=== PATIENT | female | born 1955 | race Caucasian/White ===

== ENCOUNTER 2021-01-23 10:50 | Outpatient (CLI) | payer OTHER | END 2021-01-23 10:51 | disposition home or self-care (01) | LOC: BICRAD 10:50 | PROVIDERS: ATTEND Internal Medicine Critical Care Medicine | DX: R06.00 Dyspnea, unspecified (principal); R91.8 Other nonspecific abnormal finding of lung field | CPT/HCPCS: 71046 ==

== ENCOUNTER 2021-02-21 10:33 | Emergency (ER) | payer OTHER ==
[~2021-02-21 10:33] MED LIST: Iopamidol-370 76% 500 ML 1 ML ONE
[2021-02-21 11:27] LABS: #Basophils 0.1 thou/uL (0.0-0.2); #Eosinphils 0.8 thou/uL (0.0-0.7); #Lymphocytes 2.3 thou/uL (1.20-3.40); #Monocytes 0.7 thou/uL (0.11-0.59); #Neutrophils 4.2 thou/uL (1.40-6.50); %Basophils 1.5 % (0.0-1.0); %Eosinophils 9.9 % (0.0-10.0); %Lymphocytes 28.2 % (21.0-51.0); %Monocytes 8.9 % (0.0-10.0); %Neutrophils 51.6 % (42.0-75.0); Hemoglobin 17.3 g/dL (12.0-16.0); Mean Corpuscular HGB CONC 32.3 g/dL (32.0-36.0); Mean Corpuscular Hemoglobin 30.6 pg (27.0-31.0); Mean Corpuscular Volume 94.9 fL (78.0-98.0); Mean Platelet Volume 8.5 fL (7.4-10.4); Platelet Count 305 thou/uL (130-400); RBC Distribution Width 12.9 % (11.5-14.5); Red Blood Cell (RBC) Count 5.63 mill/uL (4.20-5.40); White Blood Cell (WBC) Count 8.2 thou/uL (4.8-10.8)
[2021-02-21 11:41] LABS: Actual Bicarbonate (HCO3a) 26.8 mEq/L (22-28); Analyzer IN Cardio ER; Base Excess (BEa) 2.6 mEq/L (-2.0 to +3.0); Carboxyhemoglobin (COHb) 0.3 gm% (0.0-3.0); O2 Tension (PaO2), arterial 63.3 mmHg (> 80.0); Potassium - ABG Lab 4.08 mmol/L (3.70-5.30); pH, Arterial 7.44 (7.35-7.45)
[2021-02-21 11:46] LABS: Puncture Site LRA
[2021-02-21] MEDS ORDERED: Magnesium 2 GM/50 ML BAG (IN WATER) ONE (11:46)
[2021-02-21] MEDS ORDERED: Dexamethasone 10 MG/ML VIAL ONE (11:46)
[2021-02-21] MEDS ORDERED: Aspirin Chewable 81 MG TAB ONE (11:46)
[2021-02-21 11:57] LABS: ALT (SGPT) 35 U/L (8-55); AST (SGOT) 33 U/L (5-34); Albumin 4.8 g/dL (3.4-4.8); Alkaline Phosphatase 70 U/L (40-110); Anion Gap 17 mmol/L (10-20); BUN (Urea Nitrogen) 19 mg/dL (9.8-20.1); Bilirubin, Total 0.5 mg/dL (0.2-1.2); CK (CPK) 73 U/L (29-168); Calc. Creatinine Clearance 0 mL/min (70-130); Calcium 10.4 mg/dL (7.8-10.44); Carbon Dioxide 27 mmol/L (23-31); Chloride 102 mmol/L (98-107); Globulin 3.1 g/dL (2.4-3.5); Glucose 94 mg/dL (80-115); Lipase 17 U/L (8-78); Potassium 5.5 mmol/L (3.5-5.1); Protein, Total 7.9 g/dL (5.8-8.1); Sodium 140 mmol/L (136-145)
== END 2021-02-21 14:35 | disposition home or self-care (01) ==
LOC: ERS 10:33
DX: J44.9 Chronic obstructive pulmonary disease, unspecified (principal); F17.210 Nicotine dependence, cigarettes, uncomplicated
CPT/HCPCS: 36415; 36600; 71045; 71275; 80053; 82550; 82805; 83605; 83690; 83880; 84484; 85025; 85379; 87040; 93005; 94640; 96365; 96375; J1100; J3475

== ENCOUNTER 2021-08-29 08:11 | Outpatient (CLI) | payer OTHER | END 2021-08-29 08:12 | disposition home or self-care (01) | LOC: RAD 08:11 | PROVIDERS: ATTEND Internal Medicine Critical Care Medicine | DX: R06.00 Dyspnea, unspecified (principal) | CPT/HCPCS: 71046 ==

== ENCOUNTER 2021-09-02 19:00 | Outpatient (CLI) | payer OTHER | END 2021-09-02 19:01 | disposition home or self-care (01) | LOC: SLEEPLAB 19:00 | PROVIDERS: ATTEND Internal Medicine Critical Care Medicine | DX: G47.33 Obstructive sleep apnea (adult) (pediatric) (principal); R06.83 Snoring; J44.9 Chronic obstructive pulmonary disease, unspecified; R09.02 Hypoxemia | CPT/HCPCS: 95810 ==

== ENCOUNTER 2021-09-17 12:05 | Inpatient (IN) | payer OTHER ==
[2021-09-17] MEDS ORDERED: Albuterol Sulfate 2.5 mg/3 ml Neb ONE (12:56)
[2021-09-17] MEDS ORDERED: Albuterol Sulfate 2.5 mg/0.5 ml Neb ONE (12:56)
[2021-09-17 13:09] LABS: #Lymphocytes 0.8 thou/uL (1.20-3.40); #Monocytes 0.1 thou/uL (0.11-0.59); #Neutrophils 4.4 thou/uL (1.40-6.50); %Basophils 0.1 % (0.0-1.0); %Eosinophils 0.4 % (0.0-10.0); %Lymphocytes 15.4 % (21.0-51.0); %Monocytes 1.7 % (0.0-10.0); %Neutrophils 82.4 % (42.0-75.0); Hemoglobin 15.3 g/dL (12.0-16.0); Mean Corpuscular HGB CONC 31.3 g/dL (32.0-36.0); Mean Corpuscular Volume 95.9 fL (78.0-98.0); Mean Platelet Volume 7.6 fL (7.4-10.4); Platelet Count 328 thou/uL (130-400); RBC Distribution Width 12.7 % (11.5-14.5); Red Blood Cell (RBC) Count 5.11 mill/uL (4.20-5.40); White Blood Cell (WBC) Count 5.3 thou/uL (4.8-10.8)
[2021-09-17 13:33] LABS: ALT (SGPT) 18 U/L (8-55); AST (SGOT) 18 U/L (5-34); Albumin 4.6 g/dL (3.4-4.8); Alkaline Phosphatase 54 U/L (40-110); Anion Gap 11 mmol/L (10-20); BUN (Urea Nitrogen) 17 mg/dL (9.8-20.1); Bilirubin, Total 0.7 mg/dL (0.2-1.2); CK (CPK) 75 U/L (29-168); Calc. Creatinine Clearance 0 mL/min (70-130); Calcium 9.9 mg/dL (7.8-10.44); Carbon Dioxide 29 mmol/L (23-31); Chloride 102 mmol/L (98-107); Globulin 2.5 g/dL (2.4-3.5); Glucose 155 mg/dL (80-115); Potassium 3.9 mmol/L (3.5-5.1); Protein, Total 7.1 g/dL (5.8-8.1); Sodium 138 mmol/L (136-145)
[2021-09-17] MEDS ORDERED: Iopamidol-370 76% 500 ML 1 ML ONE (15:20)
[2021-09-17 16:53] VITALS: BMI 19.7
[2021-09-17] MEDS ORDERED: Calcium Carbonate 500 MG ChewTAB PO PRN (16:58)
[2021-09-17] MEDS ORDERED: Senokot S 8.6-50 MG TAB PO PRN (16:58)
[2021-09-17] MEDS ORDERED: Acetaminophen 325 MG TAB PO PRN (16:58)
[2021-09-17] MEDS ORDERED: Benzonatate 100 MG CAP PO PRN (17:17)
[2021-09-17] MEDS ORDERED: Cepastat Lozenges 1 LOZ PO PRN (17:17)
[2021-09-17 17:44] LABS: Magnesium 1.8 mg/dL (1.6-2.6)
[2021-09-17 18:02] LABS: Troponin I Less than 0.010 ng/mL (< 0.028)
[2021-09-17] MEDS: methylPREDNISolone Sod Succ 40 MG VIAL IVP SCH (18:10)
[2021-09-17] MEDS: Azithromycin 500 MG in Sodium Chloride 0.9% 250 ML 250 ML IVPB SCH (18:10)
[2021-09-17] MEDS: Famotidine 20 MG TAB PO SCH (20:30)
[2021-09-17] MEDS: guaiFENesin ER 600 MG TAB PO SCH (20:30)
[2021-09-17] MEDS ORDERED: Magnesium 2 GM/50 ML(in water) 2 GM in Premix Bag 1 BAG IVPB SCH (21:00)
[2021-09-17 21:18] LABS: Troponin I Less than 0.010 ng/mL (< 0.028)
[2021-09-17] MEDS: Albuterol 200 PUFF (6.7GM INHALER) INH SCH (23:50)
[2021-09-18] MEDS: Albuterol 200 PUFF (6.7GM INHALER) INH SCH ×8 (00:54→22:00)
[2021-09-18] MEDS: methylPREDNISolone Sod Succ 40 MG VIAL IVP SCH ×2 (04:35→16:58)
[2021-09-18 06:32] LABS: #Basophils 0.1 thou/uL (0.0-0.2); #Lymphocytes 1.3 thou/uL (1.20-3.40); #Monocytes 0.5 thou/uL (0.11-0.59); #Neutrophils 7.8 thou/uL (1.40-6.50); %Basophils 0.7 % (0.0-1.0); %Eosinophils 0.2 % (0.0-10.0); %Lymphocytes 13.7 % (21.0-51.0); %Monocytes 5.3 % (0.0-10.0); %Neutrophils 80.1 % (42.0-75.0); Hemoglobin 13.5 g/dL (12.0-16.0); Mean Corpuscular HGB CONC 32.1 g/dL (32.0-36.0); Mean Corpuscular Hemoglobin 30.8 pg (27.0-31.0); Mean Corpuscular Volume 96.1 fL (78.0-98.0); Mean Platelet Volume 7.8 fL (7.4-10.4); Platelet Count 339 thou/uL (130-400); RBC Distribution Width 12.5 % (11.5-14.5); Red Blood Cell (RBC) Count 4.38 mill/uL (4.20-5.40); White Blood Cell (WBC) Count 9.8 thou/uL (4.8-10.8)
[2021-09-18 07:01] LABS: Anion Gap 11 mmol/L (10-20); BUN (Urea Nitrogen) 17 mg/dL (9.8-20.1); Calc. Creatinine Clearance 47 mL/min (70-130); Calcium 9.1 mg/dL (7.8-10.44); Carbon Dioxide 26 mmol/L (23-31); Chloride 103 mmol/L (98-107); Glucose 117 mg/dL (80-115); Potassium 4.4 mmol/L (3.5-5.1); Sodium 136 mmol/L (136-145)
[2021-09-18] MEDS: guaiFENesin ER 600 MG TAB PO SCH ×3 (07:04→21:05)
[2021-09-18] MEDS: Famotidine 20 MG TAB PO SCH (07:04)
[2021-09-18] MEDS ORDERED: Enoxaparin Sodium 30 MG/0.3 ML SYRINGE SC SCH (09:00)
[2021-09-18 15:56] LABS: Actual Bicarbonate (HCO3a) 28.8 mEq/L (22-28); Base Excess (BEa) 5.2 mEq/L (-2.0 to +3.0); CO2 Tension 38.9 mmHg (35.0-45.0); Calcium, Ionized (arterial) 1.21 mmol/L (1.12-1.30); Carboxyhemoglobin (COHb) 0.6 gm% (0.0-3.0); Hemoglobin (Hb) 15.5 g/dL (12.0-16.0); O2 Tension (PaO2), arterial 61.2 mmHg (> 80.0); Potassium - ABG Lab 4.21 mmol/L (3.70-5.30); pH, Arterial 7.49 (7.35-7.45)
[2021-09-18 15:59] LABS: ALV-art Gradient 39.905 mmHg (0-20); Puncture Site RRA
[2021-09-18] MEDS: Azithromycin 500 MG in Sodium Chloride 0.9% 250 ML 250 ML IVPB SCH (17:20)
[2021-09-18] MEDS ORDERED: Montelukast Sodium 10 mg Tablet PO SCH (21:00)
[2021-09-19] MEDS: Albuterol 200 PUFF (6.7GM INHALER) INH SCH ×3 (01:00→06:16)
[2021-09-19] MEDS: methylPREDNISolone Sod Succ 40 MG VIAL IVP SCH (05:15)
[2021-09-19 08:26] VITALS: TEMP 98.4
[2021-09-19] MEDS: guaiFENesin ER 600 MG TAB PO SCH (08:43)
[2021-09-19] MEDS: Famotidine 20 MG TAB PO SCH ×2 (08:43→08:46)
[2021-09-19 11:59] VITALS: BP 120/84
== END 2021-09-19 12:33 | disposition home or self-care (01) | DRG 189 ==
LOC: ERS 12:05 → T4-A 15:36
PROVIDERS: ADMIT Internal Medicine; ATTEND Internal Medicine
DX: J96.21 Acute and chronic respiratory failure with hypoxia (principal); J43.9 Emphysema, unspecified; N18.30 Chronic kidney disease, stage 3 unspecified; E83.42 Hypomagnesemia; R73.9 Hyperglycemia, unspecified; T38.0X5A Adverse effect of glucocorticoids and synthetic analogues, initial encounter; Z87.891 Personal history of nicotine dependence; Z99.81 Dependence on supplemental oxygen; Z88.6 Allergy status to analgesic agent; Z88.5 Allergy status to narcotic agent; Z88.8 Allergy status to other drugs, medicaments and biological substances; Z79.899 Other long term (current) drug therapy; Z79.52 Long term (current) use of systemic steroids; Z90.89 Acquired absence of other organs; Z90.710 Acquired absence of both cervix and uterus
CPT/HCPCS: 36415; 36600; 71275; 80048; 80053; 82550; 82805; 83735; 83880; 84484; 85025; 93005; 94640; J0456; J1650; J2920; J7050; J7611; Q9967

== ENCOUNTER 2021-10-29 19:00 | Outpatient (CLI) | payer OTHER | END 2021-10-29 19:01 | disposition home or self-care (01) | LOC: SLEEPLAB 19:00 | PROVIDERS: ATTEND Internal Medicine Critical Care Medicine | DX: G47.33 Obstructive sleep apnea (adult) (pediatric) (principal); R06.83 Snoring; G47.00 Insomnia, unspecified; J44.9 Chronic obstructive pulmonary disease, unspecified; G47.10 Hypersomnia, unspecified; R09.02 Hypoxemia; E66.9 Obesity, unspecified; Z68.1 Body mass index [BMI] 19.9 or less, adult | CPT/HCPCS: 95811 ==

== ENCOUNTER 2022-01-01 11:51 | Outpatient (CLI) | payer OTHER | END 2022-01-01 11:52 | disposition home or self-care (01) | LOC: RAD 11:51 | PROVIDERS: ATTEND Internal Medicine Critical Care Medicine | DX: J44.1 Chronic obstructive pulmonary disease with (acute) exacerbation (principal) | CPT/HCPCS: 71046 ==

== ENCOUNTER 2022-06-26 10:10 | Outpatient (CLI) | payer OTHER, MEDICAID | END 2022-06-26 10:11 | disposition home or self-care (01) | LOC: CT 10:10 | PROVIDERS: ATTEND Internal Medicine Critical Care Medicine | DX: J44.1 Chronic obstructive pulmonary disease with (acute) exacerbation (principal); J98.4 Other disorders of lung | CPT/HCPCS: 71250 ==

== ENCOUNTER 2022-06-30 10:59 | Inpatient (IN) | payer OTHER, MEDICAID ==
[2022-06-30] MEDS ORDERED: Ipratropium/Albuterol 3 ML NEB ONE ×2 (11:50→23:37)
[2022-06-30] MEDS ORDERED: Magnesium 2 GM/50 ML BAG (IN WATER) ONE (11:50)
[2022-06-30 11:58] LABS: #Lymphocytes 0.7 thou/uL (1.20-3.40); #Monocytes 0.1 thou/uL (0.11-0.59); #Neutrophils 5.6 thou/uL (1.40-6.50); %Basophils 0.6 % (0.0-1.0); %Eosinophils 0.4 % (0.0-10.0); %Lymphocytes 10.7 % (21.0-51.0); %Monocytes 1.5 % (0.0-10.0); Hemoglobin 15.3 g/dL (12.0-16.0); Mean Corpuscular HGB CONC 31.2 g/dL (32.0-36.0); Mean Corpuscular Hemoglobin 29.6 pg (27.0-31.0); Mean Corpuscular Volume 94.7 fl (78.0-98.0); Mean Platelet Volume 7.8 fL (7.4-10.4); Platelet Count 460 10x3/uL (130-400); RBC Distribution Width 12.2 % (11.5-14.5); Red Blood Cell (RBC) Count 5.17 mill/uL (4.20-5.40); White Blood Cell (WBC) Count 6.4 10x3/uL (4.8-10.8)
[2022-06-30 12:22] LABS: ALT (SGPT) 17 U/L (8-55); AST (SGOT) 17 U/L (5-34); Albumin 4.4 g/dL (3.4-4.8); Alkaline Phosphatase 76 U/L (40-110); Anion Gap 17 mmol/L (10-20); BUN (Urea Nitrogen) 19 mg/dL (9.8-20.1); Bilirubin, Total 0.3 mg/dL (0.2-1.2); Calc. Creatinine Clearance 0 mL/min (70-130); Calcium 9.8 mg/dL (7.8-10.44); Carbon Dioxide 24 mmol/L (23-31); Chloride 101 mmol/L (98-107); Estimated GFR 59; Globulin 2.8 g/dL (2.4-3.5); Glucose 176 mg/dL (80-115); Lipase Less than 4 U/L (8-78); Potassium 4.5 mmol/L (3.5-5.1); Protein, Total 7.2 g/dL (5.8-8.1); Sodium 137 mmol/L (136-145)
[2022-06-30] MEDS ORDERED: Ondansetron PF 4 MG/2 ML Vial IVP PRN (15:27)
[2022-06-30] MEDS ORDERED: Acetaminophen 325 MG TAB PO PRN (15:27)
[2022-06-30] MEDS ORDERED: Ondansetron ODT 4 MG TAB PO PRN (15:27)
[2022-06-30] MEDS ORDERED: Albuterol 200 PUFF (6.7GM INHALER) INH PRN (15:29)
[2022-06-30] MEDS ORDERED: methylPREDNISolone Sod Succ 40 MG VIAL ONE (19:08)
[2022-06-30] MEDS: methylPREDNISolone Sod Succ 40 MG VIAL IVP SCH (19:13)
[2022-06-30] MEDS ORDERED: Apixaban 5 MG TAB PO SCH (21:00)
[2022-06-30] MEDS ORDERED: Famotidine 20 MG TAB ONE (21:50)
[2022-06-30] MEDS ORDERED: Budesonide 0.5 MG/2 ML NEB ONE (23:38)
[2022-07-01] MEDS: Apixaban 2.5 MG TAB PO SCH ×3 (00:15→20:32)
[2022-07-01] MEDS: Famotidine 20 MG TAB PO SCH ×3 (00:15→20:32)
[2022-07-01] MEDS: Montelukast Sodium 10 mg Tablet PO SCH ×2 (00:15→20:33)
[2022-07-01] MEDS: methylPREDNISolone Sod Succ 40 MG VIAL IVP SCH ×4 (00:55→17:25)
[2022-07-01 01:06] LABS: SARS-CoV-2 NAA Rapid Test Not Detected (NotDetected)
[2022-07-01] MEDS: Budesonide 0.25 MG/2 ML NEB INH SCH ×2 (01:27→06:50)
[2022-07-01] MEDS: Ipratropium/Albuterol 3 ML NEB NEB SCH ×5 (01:27→18:50)
[2022-07-01 07:07] LABS: #Lymphocytes 1.8 thou/uL (1.20-3.40); #Monocytes 0.7 thou/uL (0.11-0.59); #Neutrophils 8.1 thou/uL (1.40-6.50); %Basophils 0.1 % (0.0-1.0); %Eosinophils 0.1 % (0.0-10.0); %Lymphocytes 16.9 % (21.0-51.0); %Monocytes 6.4 % (0.0-10.0); %Neutrophils 76.4 % (42.0-75.0); Hemoglobin 13.7 g/dL (12.0-16.0); Mean Corpuscular Hemoglobin 29.5 pg (27.0-31.0); Mean Corpuscular Volume 95.3 fl (78.0-98.0); Mean Platelet Volume 7.6 fL (7.4-10.4); Platelet Count 425 10x3/uL (130-400); RBC Distribution Width 12.2 % (11.5-14.5); Red Blood Cell (RBC) Count 4.63 mill/uL (4.20-5.40); White Blood Cell (WBC) Count 10.6 10x3/uL (4.8-10.8)
[2022-07-01 07:24] LABS: Anion Gap 14 mmol/L (10-20); BUN (Urea Nitrogen) 24 mg/dL (9.8-20.1); Calc. Creatinine Clearance 51 mL/min (70-130); Calcium 9.5 mg/dL (7.8-10.44); Carbon Dioxide 26 mmol/L (23-31); Chloride 102 mmol/L (98-107); Estimated GFR 79; Glucose 114 mg/dL (80-115); Potassium 4.3 mmol/L (3.5-5.1); Sodium 138 mmol/L (136-145)
[2022-07-01] MEDS: Sertraline 100 MG TAB PO SCH (08:09)
[2022-07-01] MEDS: Cyclobenzaprine 10 MG TAB PO PRN ×2 (12:00→20:33)
[2022-07-01] MEDS: Sodium Chloride 0.45% 1,000 ML IV SCH (17:25)
[2022-07-01] MEDS: Budesonide 0.5 MG/2 ML NEB NEB SCH (18:50)
[2022-07-02] MEDS: methylPREDNISolone Sod Succ 40 MG VIAL IVP SCH ×5 (00:48→23:40)
[2022-07-02] MEDS: Sodium Chloride 0.45% 1,000 ML IV SCH ×2 (05:49→17:22)
[2022-07-02] MEDS: Ipratropium/Albuterol 3 ML NEB NEB SCH ×4 (06:54→19:33)
[2022-07-02] MEDS: Budesonide 0.5 MG/2 ML NEB NEB SCH ×2 (06:56→19:34)
[2022-07-02 07:14] LABS: #Lymphocytes 1.5 thou/uL (1.20-3.40); #Monocytes 0.4 thou/uL (0.11-0.59); #Neutrophils 11.1 thou/uL (1.40-6.50); %Basophils 0.1 % (0.0-1.0); %Eosinophils 0.2 % (0.0-10.0); %Lymphocytes 11.4 % (21.0-51.0); %Neutrophils 85.3 % (42.0-75.0); Hemoglobin 13.7 g/dL (12.0-16.0); Mean Corpuscular HGB CONC 31.7 g/dL (32.0-36.0); Mean Corpuscular Volume 94.9 fl (78.0-98.0); Mean Platelet Volume 7.8 fL (7.4-10.4); Platelet Count 435 10x3/uL (130-400); RBC Distribution Width 12.2 % (11.5-14.5); Red Blood Cell (RBC) Count 4.56 mill/uL (4.20-5.40); White Blood Cell (WBC) Count 13.1 10x3/uL (4.8-10.8)
[2022-07-02 07:38] LABS: ALT (SGPT) 11 U/L (8-55); AST (SGOT) 10 U/L (5-34); Albumin 3.5 g/dL (3.4-4.8); Alkaline Phosphatase 73 U/L (40-110); Anion Gap 14 mmol/L (10-20); BUN (Urea Nitrogen) 21 mg/dL (9.8-20.1); Bilirubin, Total 0.2 mg/dL (0.2-1.2); Calc. Creatinine Clearance 54 mL/min (70-130); Calcium 9.1 mg/dL (7.8-10.44); Carbon Dioxide 25 mmol/L (23-31); Chloride 101 mmol/L (98-107); Estimated GFR 83; Globulin 2.2 g/dL (2.4-3.5); Glucose 133 mg/dL (80-115); Potassium 4.3 mmol/L (3.5-5.1); Protein, Total 5.7 g/dL (5.8-8.1); Sodium 136 mmol/L (136-145)
[2022-07-02] MEDS: Sertraline 100 MG TAB PO SCH (08:24)
[2022-07-02] MEDS: Famotidine 20 MG TAB PO SCH ×2 (08:24→20:37)
[2022-07-02] MEDS: Apixaban 2.5 MG TAB PO SCH ×2 (08:24→20:37)
[2022-07-02] MEDS: Cyclobenzaprine 10 MG TAB PO PRN ×2 (08:42→20:42)
[2022-07-02] MEDS: Montelukast Sodium 10 mg Tablet PO SCH (20:37)
[2022-07-02] MEDS: Sulfameth/Trimethoprim DS 800-160mg TAB PO SCH (20:37)
[2022-07-03] MEDS: methylPREDNISolone Sod Succ 40 MG VIAL IVP SCH ×4 (06:14→23:10)
[2022-07-03] MEDS: Sodium Chloride 0.45% 1,000 ML IV SCH ×2 (06:18→23:30)
[2022-07-03 07:33] LABS: #Eosinphils 0.1 thou/uL (0.0-0.7); #Lymphocytes 1.3 thou/uL (1.20-3.40); #Monocytes 0.6 thou/uL (0.11-0.59); %Basophils 0.1 % (0.0-1.0); %Eosinophils 0.5 % (0.0-10.0); %Lymphocytes 9.6 % (21.0-51.0); %Monocytes 3.9 % (0.0-10.0); %Neutrophils 85.9 % (42.0-75.0); Hemoglobin 14.5 g/dL (12.0-16.0); Mean Corpuscular Hemoglobin 30.5 pg (27.0-31.0); Mean Corpuscular Volume 95.1 fl (78.0-98.0); Mean Platelet Volume 7.8 fL (7.4-10.4); Platelet Count 435 10x3/uL (130-400); RBC Distribution Width 12.2 % (11.5-14.5); Red Blood Cell (RBC) Count 4.77 mill/uL (4.20-5.40)
[2022-07-03 07:57] LABS: ALT (SGPT) 16 U/L (8-55); AST (SGOT) 18 U/L (5-34); Albumin 3.6 g/dL (3.4-4.8); Alkaline Phosphatase 65 U/L (40-110); Anion Gap 15 mmol/L (10-20); BUN (Urea Nitrogen) 17 mg/dL (9.8-20.1); Bilirubin, Total 0.3 mg/dL (0.2-1.2); Calc. Creatinine Clearance 53 mL/min (70-130); Calcium 9.1 mg/dL (7.8-10.44); Carbon Dioxide 24 mmol/L (23-31); Chloride 102 mmol/L (98-107); Estimated GFR 81; Globulin 2.5 g/dL (2.4-3.5); Glucose 124 mg/dL (80-115); Potassium 4.6 mmol/L (3.5-5.1); Protein, Total 6.1 g/dL (5.8-8.1); Sodium 136 mmol/L (136-145)
[2022-07-03] MEDS: Apixaban 2.5 MG TAB PO SCH ×2 (09:10→19:48)
[2022-07-03] MEDS: Cyclobenzaprine 10 MG TAB PO PRN ×2 (09:10→18:17)
[2022-07-03] MEDS: Sulfameth/Trimethoprim DS 800-160mg TAB PO SCH ×2 (09:10→19:48)
[2022-07-03] MEDS: Sertraline 100 MG TAB PO SCH (09:10)
[2022-07-03] MEDS: Famotidine 20 MG TAB PO SCH ×2 (09:10→19:47)
[2022-07-03] MEDS: Budesonide 0.5 MG/2 ML NEB NEB SCH ×2 (11:25→18:16)
[2022-07-03] MEDS: Ipratropium/Albuterol 3 ML NEB NEB SCH ×4 (11:26→18:16)
[2022-07-03] MEDS: Montelukast Sodium 10 mg Tablet PO SCH (19:48)
[2022-07-03] MEDS ORDERED: Sertraline 100 MG TAB PO SCH (21:00)
[2022-07-04] MEDS: Sodium Chloride 0.45% 1,000 ML IV SCH (04:30)
[2022-07-04] MEDS: methylPREDNISolone Sod Succ 40 MG VIAL IVP SCH ×2 (04:30→11:42)
[2022-07-04] MEDS: Budesonide 0.5 MG/2 ML NEB NEB SCH (06:36)
[2022-07-04] MEDS: Ipratropium/Albuterol 3 ML NEB NEB SCH ×3 (06:37→13:36)
[2022-07-04 07:07] LABS: #Eosinphils 0.1 thou/uL (0.0-0.7); #Lymphocytes 1.1 thou/uL (1.20-3.40); #Monocytes 0.5 thou/uL (0.11-0.59); #Neutrophils 12.3 thou/uL (1.40-6.50); %Basophils 0.2 % (0.0-1.0); %Eosinophils 0.4 % (0.0-10.0); %Monocytes 3.9 % (0.0-10.0); %Neutrophils 87.6 % (42.0-75.0); Hemoglobin 14.9 g/dL (12.0-16.0); Mean Corpuscular HGB CONC 31.4 g/dL (32.0-36.0); Mean Corpuscular Volume 95.7 fl (78.0-98.0); Mean Platelet Volume 7.6 fL (7.4-10.4); Platelet Count 442 10x3/uL (130-400); RBC Distribution Width 12.1 % (11.5-14.5); Red Blood Cell (RBC) Count 4.95 mill/uL (4.20-5.40)
[2022-07-04] MEDS: Sulfameth/Trimethoprim DS 800-160mg TAB PO SCH (08:43)
[2022-07-04] MEDS: Famotidine 20 MG TAB PO SCH (08:43)
[2022-07-04] MEDS: Apixaban 2.5 MG TAB PO SCH (08:43)
[2022-07-04 08:47] VITALS: BP 153/88; TEMP 98.3
[2022-07-04] MEDS: Cyclobenzaprine 10 MG TAB PO PRN (08:48)
[2022-07-04] MEDS ORDERED: FLU VACC QS2022-23(65YR UP)/PF 240 MCG/0.7 ML SYRINGE IM ONE (09:00)
[2022-07-04 10:45] VITALS: BMI 19.0
== END 2022-07-04 15:28 | disposition home or self-care (01) | DRG 189 ==
LOC: ERS 10:59 → ERHOLD 14:14 → T4-A 07-01 00:55 → OBSVTOIN 07-02 11:53
PROVIDERS: ADMIT Internal Medicine; ATTEND Internal Medicine
DX: J96.21 Acute and chronic respiratory failure with hypoxia (principal); J44.1 Chronic obstructive pulmonary disease with (acute) exacerbation; G47.33 Obstructive sleep apnea (adult) (pediatric); N18.30 Chronic kidney disease, stage 3 unspecified; F41.9 Anxiety disorder, unspecified; Z20.822 Contact with and (suspected) exposure to COVID-19; Z88.5 Allergy status to narcotic agent; Z88.8 Allergy status to other drugs, medicaments and biological substances; Z79.51 Long term (current) use of inhaled steroids; Z79.899 Other long term (current) drug therapy; Z90.49 Acquired absence of other specified parts of digestive tract; Z98.890 Other specified postprocedural states; Z87.891 Personal history of nicotine dependence; Z86.718 Personal history of other venous thrombosis and embolism; Z86.711 Personal history of pulmonary embolism; Z79.01 Long term (current) use of anticoagulants
CPT/HCPCS: 36415; 71045; 80048; 80053; 83690; 83735; 84484; 85025; 93005; 94640; 94644; 96365; 96375; 96376; G0378; J2920; J3475; J7611; J7620; J7626; U0002

== ENCOUNTER 2023-01-30 07:57 | Day surgery (SDC) | payer OTHER, MEDICAID ==
[2023-01-29 11:12] VITALS: BMI 17.3
[2023-01-30] MEDS ORDERED: Hydrocortisone Sod Succ/PF 100 mg/2 ml Vial ONE (09:08)
[2023-01-30] MEDS ORDERED: Ketamine 50 MG/ML (10ML VIAL) ONE (10:41)
[2023-01-30] MEDS ORDERED: PROPOFOL 200 MG/20 ML VIAL ONE (10:58)
== END 2023-01-30 12:32 | disposition home or self-care (01) ==
LOC: SDC 07:57
PROVIDERS: ATTEND Internal Medicine Gastroenterology
PROC: 0DB68ZX Excision of Stomach, Via Natural or Artificial Opening Endoscopic, Diagnostic (ICD-10-PCS; principal; 2023-01-30)
PROC: 0D758ZZ Dilation of Esophagus, Via Natural or Artificial Opening Endoscopic (ICD-10-PCS; 2023-01-30)
DX: K21.00 Gastro-esophageal reflux disease with esophagitis, without bleeding (principal); K31.89 Other diseases of stomach and duodenum; K29.50 Unspecified chronic gastritis without bleeding; J45.909 Unspecified asthma, uncomplicated; I10 Essential (primary) hypertension; E78.5 Hyperlipidemia, unspecified; Z90.710 Acquired absence of both cervix and uterus; Z90.49 Acquired absence of other specified parts of digestive tract; Z88.5 Allergy status to narcotic agent; Z88.0 Allergy status to penicillin; Z87.891 Personal history of nicotine dependence; Z86.711 Personal history of pulmonary embolism; Z79.899 Other long term (current) drug therapy; Z79.52 Long term (current) use of systemic steroids
CPT/HCPCS: 88305; 88312; 88342; J1720; J2704

== ENCOUNTER 2023-09-26 16:36 | Emergency (ER) | payer OTHER, MEDICAID ==
[2023-09-26] MEDS ORDERED: Ondansetron PF 4 MG/2 ML Vial ONE (17:48)
[2023-09-26] MEDS ORDERED: Dicyclomine 20 MG/2 ML VIAL ONE (17:50)
[2023-09-26 18:14] LABS: #Basophils 0.03 10x3/uL (0.0-0.2); %Basophils 0.3 % (0.0-1.0); %Eosinophils 1.5 % (0.0-10.0); %Lymphocytes 26.7 % (21.0-51.0); %Neutrophils 64.2 % (42.0-75.0); Hematocrit 44.6 % (36.0-47.0); Hemoglobin 14.3 g/dL (12.0-16.0); Mean Corpuscular HGB CONC 32.1 g/dL (32.0-36.0); Mean Corpuscular Hemoglobin 30.2 pg (27.0-31.0); Mean Corpuscular Volume 94.1 fL (78.0-98.0); Mean Platelet Volume 10.2 fL (7.4-10.4); Platelet Count 336 10x3/uL (130-400); RBC Distribution Width 13.5 % (11.5-14.5); Red Blood Cell (RBC) Count 4.74 mill/uL (4.20-5.40)
[2023-09-26 18:30] LABS: ALT (SGPT) 17 U/L (8-55); AST (SGOT) 21 U/L (5-34); Albumin 3.8 g/dL (3.4-4.8); Alkaline Phosphatase 49 U/L (40-110); Anion Gap 15 mmol/L (10-20); BUN (Urea Nitrogen) 11 mg/dL (9.8-20.1); Bilirubin, Total 0.4 mg/dL (0.2-1.2); Calc. Creatinine Clearance 0 mL/min (70-130); Calcium 9.5 mg/dL (7.8-10.44); Carbon Dioxide 24 mmol/L (23-31); Chloride 104 mmol/L (98-107); Estimated GFR 81; Globulin 2.6 g/dL (2.4-3.5); Glucose 118 mg/dL (80-115); Lipase 13 U/L (8-78); Potassium 4.3 mmol/L (3.5-5.1); Protein, Total 6.4 g/dL (5.8-8.1); Sodium 139 mmol/L (136-145)
[2023-09-26 18:34] LABS: Troponin I Less than 0.010 ng/mL (< 0.028)
[2023-09-26] MEDS ORDERED: Ketorolac Tromethamine 30 MG (1 mL) VIAL ONE (19:18)
[2023-09-26 19:32] LABS: Bacteria/HPF None Seen HPF (None Seen); Bilirubin Negative (Negative); Blood, Urine Negative (Negative); CAUTI Indications for Culture Pelvic or flank pain; Clarity Clear (Clear); Glucose, Urine (Dipstick) Normal (Negative); Ketone, Urine Negative (Negative); Leukocyte Negative Leu/uL (Negative); Nitrite Negative (Negative); Protein, Urine (Dipstick) Negative (Neg-Trace); RBC/HPF 0-3 HPF (0-3); Specific Gravity, Urine 1.013 (1.002-1.036); Squamous Epithelial None Seen HPF (0-3); Urobilinogen Normal mg/dL (Less than 2); WBC/HPF 0-3 HPF (0-3); pH, Urine 7.5 (5.0-9.0)
[2023-09-26 19:38] LABS: Urine Culture Reflex No No
== END 2023-09-26 20:22 | disposition home or self-care (01) ==
LOC: ERS 16:36
DX: K80.50 Calculus of bile duct without cholangitis or cholecystitis without obstruction (principal); J44.9 Chronic obstructive pulmonary disease, unspecified; I10 Essential (primary) hypertension; Z87.891 Personal history of nicotine dependence
CPT/HCPCS: 76705; 80053; 81001; 83690; 84484; 85025; 93005; 96372; 96374; 96375; 99284; J1885; J2405; 36415

== ENCOUNTER 2023-10-21 13:36 | Outpatient (CLI) | payer OTHER, MEDICAID ==
[2023-10-21 14:30] LABS: #Basophils 0.04 10x3/uL (0.0-0.2); #Eosinphils 0.08 10x3/uL (0.0-0.5); #Monocytes 0.36 10x3/uL (0.0-1.1); #Neutrophils 5.84 10x3/uL (1.5-8.4); %Basophils 0.5 % (0.0-2.0); %Eosinophils 0.9 % (0.0-6.0); %Lymphocytes 25.1 % (18.0-47.0); %Monocytes 4.3 % (0.0-10.0); Hematocrit 43.9 % (34.9-44.5); Hemoglobin 14.4 g/dL (12.0-15.5); Mean Corpuscular HGB CONC 32.8 g/dL (32.0-36.0); Mean Corpuscular Hemoglobin 29.9 pg (27.0-33.0); Mean Corpuscular Volume 91.1 fL (81.6-98.3); Mean Platelet Volume 10.2 fL (7.4-10.4); Platelet Count 395 10x3/uL (150-450); RBC Distribution Width 13.6 % (11.5-14.5); Red Blood Cell (RBC) Count 4.82 10x6/uL (3.90-5.03); White Blood Cell (WBC) Count 8.5 10x3/uL (3.5-10.5)
[2023-10-21 14:57] LABS: ALT (SGPT) 18 U/L (8-55); AST (SGOT) 21 U/L (5-34); Albumin 4.4 g/dL (3.4-4.8); Alkaline Phosphatase 50 U/L (40-110); Anion Gap 14 mmol/L (10-20); BUN (Urea Nitrogen) 13 mg/dL (9.8-20.1); Bilirubin, Direct 0.1 mg/dL (0.1-0.3); Bilirubin, Total 0.4 mg/dL (0.2-1.2); Calc. Creatinine Clearance 0 mL/min (70-130); Calcium 10.3 mg/dL (7.8-10.44); Carbon Dioxide 30 mmol/L (23-31); Chloride 101 mmol/L (98-107); Estimated GFR 73; Glucose 112 mg/dL (80-115); Potassium 4.9 mmol/L (3.5-5.1); Protein, Total 6.7 g/dL (5.8-8.1); Sodium 140 mmol/L (136-145)
== END 2023-10-21 13:37 | disposition home or self-care (01) ==
LOC: LABBT 13:36
PROVIDERS: ATTEND Surgery
DX: Z01.812 Encounter for preprocedural laboratory examination (principal); K81.9 Cholecystitis, unspecified
CPT/HCPCS: 80048; 80076; 85025

== ENCOUNTER 2023-10-27 06:22 | Day surgery (SDC) | payer OTHER, MEDICAID ==
[2023-10-21 14:21] VITALS: BMI 15.3
[2023-10-27] MEDS ORDERED: Indocyanine Green 25 MG/10 ML VIAL ONE (08:09)
[2023-10-27] MEDS ORDERED: EPINEPHrine 1 MG/ML VIAL ONE (08:09)
[2023-10-27] MEDS ORDERED: Bupivacaine 0.25% HCL 30 ML VIAL ONE (08:09)
[2023-10-27] MEDS ORDERED: fentaNYL PF 100 MCG/2 ML SYRINGE ONE (08:36)
[2023-10-27] MEDS ORDERED: PROPOFOL 20 ML ONE (08:36)
[2023-10-27] MEDS ORDERED: Sodium Chloride 0.9% 100 ML ONE (08:44)
[2023-10-27] MEDS ORDERED: CEFAZOLIN 1 GM VIAL ONE (08:44)
[2023-10-27] MEDS ORDERED: Dexamethasone 4 mg/ml Vial ONE (09:09)
[2023-10-27] MEDS ORDERED: Ondansetron PF 4 MG/2 ML Vial ONE (09:09)
[2023-10-27] MEDS ORDERED: SUGAMMADEX SODIUM 200 MG/2 ML VIAL ONE (09:10)
[2023-10-27] MEDS ORDERED: Rocuronium Bromide 10 MG/ML (10ML VIAL) ONE (09:13)
[2023-10-27] MEDS ORDERED: Lidocaine 2% PF 5 ML VIAL ONE (09:13)
[2023-10-27] MEDS ORDERED: Esmolol 100 MG/10 ML VIAL ONE (09:19)
[2023-10-27] MEDS ORDERED: fentaNYL 50 mcg/mL 1 mL Vial ONE (10:14)
== END 2023-10-27 11:38 | disposition home or self-care (01) ==
LOC: SDC 06:22
PROVIDERS: ATTEND Surgery
PROC: 0FT44ZZ Resection of Gallbladder, Percutaneous Endoscopic Approach (ICD-10-PCS; principal; 2023-10-27)
DX: K81.9 Cholecystitis, unspecified (principal); J44.9 Chronic obstructive pulmonary disease, unspecified; Z86.711 Personal history of pulmonary embolism; Z86.718 Personal history of other venous thrombosis and embolism; G47.33 Obstructive sleep apnea (adult) (pediatric); N18.9 Chronic kidney disease, unspecified; Z90.89 Acquired absence of other organs; Z98.890 Other specified postprocedural states; Z98.49 Cataract extraction status, unspecified eye; Z87.891 Personal history of nicotine dependence; Z88.5 Allergy status to narcotic agent; Z88.0 Allergy status to penicillin; Z88.8 Allergy status to other drugs, medicaments and biological substances
CPT/HCPCS: 47562; C1889; J0171; J0665; J0690; J1100; J2001; J2405; J2704; J3010; J3490; 88304

== ENCOUNTER 2024-03-29 23:44 | Inpatient (IN) | payer OTHER, MEDICAID ==
[2024-03-30] MEDS ORDERED: Albuterol 2.5 MG (3 mL) NEB ONE (00:09)
[2024-03-30] MEDS ORDERED: Albuterol 2.5 MG (0.5 mL) NEB ONE (00:09)
[2024-03-30 00:21] LABS: Analyzer IN Cardio ER; Base Excess -2.6 mEq/L (-2.0 to +3.0); Calcium, Ionized (venous) 1.07 mmol/L (1.16-1.32); Chloride (VBG) 105 mmol/L (98-106); Hematocrit-VBG 42 % (36.0-47.0); Hemoglobin (Hb) 14.3 g/dL (11.7-16.1); Potassium (VBG) 3.46 mmol/L (3.70-5.30); Sodium 140 mmol/L (133-146); pH (venous) 7.384 (7.32-7.43)
[2024-03-30] MEDS ORDERED: Sodium Chloride 0.9% 100 ML ONE (00:21)
[2024-03-30] MEDS ORDERED: cefTRIAXone (ROCEPHIN) 2 GM VIAL ONE (00:21)
[2024-03-30 00:40] LABS: Hematocrit 40.9 % (36.0-47.0); Hemoglobin 13.2 g/dL (12.0-16.0); Mean Corpuscular HGB CONC 32.3 g/dL (32.0-36.0); Mean Corpuscular Hemoglobin 30.1 pg (27.0-31.0); Mean Corpuscular Volume 93.2 fL (78.0-98.0); Mean Platelet Volume 10.5 fL (7.4-10.4); Platelet Count 312 10x3/uL (130-400); RBC Distribution Width 13.9 % (11.5-14.5); Red Blood Cell (RBC) Count 4.39 mill/uL (4.20-5.40)
[2024-03-30 00:41] LABS: Troponin I Less than 0.010 ng/mL (< 0.028)
[2024-03-30] MEDS ORDERED: Azithromycin 500 MG VIAL ONE (00:44)
[2024-03-30] MEDS ORDERED: Midazolam HCl 2 mg/2 ml Vial ONE (00:44)
[2024-03-30 00:50] LABS: ALT (SGPT) 18 U/L (8-55); AST (SGOT) 25 U/L (5-34); Albumin 3.7 g/dL (3.4-4.8); Alkaline Phosphatase 50 U/L (40-110); Anion Gap 17 mmol/L (10-20); BUN (Urea Nitrogen) 9 mg/dL (9.8-20.1); Bilirubin, Total 0.6 mg/dL (0.2-1.2); Calc. Creatinine Clearance 0 mL/min (70-130); Calcium 8.3 mg/dL (7.8-10.44); Carbon Dioxide 17 mmol/L (23-31); Chloride 109 mmol/L (98-107); Estimated GFR 82; Glucose 126 mg/dL (80-115); Potassium 3.8 mmol/L (3.5-5.1); Protein, Total 6.7 g/dL (5.8-8.1); Sodium 139 mmol/L (136-145)
[2024-03-30 01:14] LABS: Anisocytosis SLIGHT = 6-15 cells HPF (0-5); Band 2 % (5-11); Burr Cells SLIGHT = 2-5 cells HPF (0-1); Lymphocytes 6 % (21-51); Macrocytosis SLIGHT = 6-15 cells HPF (0-5); Monocytes 7 % (0-10); Neutrophil 84 % (42-75); Ovalocytes SLIGHT = 2-5 cells HPF (0-1); Platelet Adequacy Comment Platelets Normal; Smudge Cells 9.1 %
[2024-03-30 03:42] LABS: Lactic Acid 1.23 mmol/L (0.5-2.2)
[2024-03-30] MEDS ORDERED: Ondansetron PF 4 MG/2 ML Vial IVP PRN (05:04)
[2024-03-30 05:09] VITALS: BMI 16.0
[2024-03-30] MEDS: Sodium Chloride 0.9% 1,000 ML IV SCH (06:08)
[2024-03-30] MEDS: methylPREDNISolone Sod Succ 40 MG VIAL IVP SCH (06:08)
[2024-03-30] MEDS: Ipratropium/Albuterol 3 ML NEB NEB SCH ×2 (07:39→18:44)
[2024-03-30] MEDS ORDERED: Iopamidol-370 76% 500 ML MDV (1 ML CHARGE) ONE (09:07)
[2024-03-30] MEDS: Famotidine/PF 20 mg/2ml Vial SLOW IVP SCH (10:05)
[2024-03-30] MEDS: Apixaban 2.5 MG TAB PO SCH (10:07)
[2024-03-30] MEDS: Budesonide 0.5 MG/2 ML NEB NEB SCH (18:44)
[2024-03-30] MEDS: Methocarbamol 500 MG TAB PO PRN (19:19)
[2024-03-30] MEDS: Montelukast Sodium 10 mg Tablet PO SCH ×2 (20:51→22:24)
[2024-03-30] MEDS: cefTRIAXone\\ROCEPHIN 1 GM in Sodium Chloride 0.9% 100 ML IVPB SCH (22:34)
[2024-03-31] MEDS: Azithromycin 500 MG in Sodium Chloride 0.9% 250 ML 250 ML IVPB SCH (00:28)
[2024-03-31 05:12] LABS: #Basophils Less than 0.03 10x3/uL (0.0-0.2); #Eosinophils Less than 0.03 10x3/uL (0.0-0.7); %Basophils 0.1 % (0.0-1.0); Hematocrit 33.5 % (36.0-47.0); Hemoglobin 11.1 g/dL (12.0-16.0); Mean Corpuscular HGB CONC 33.1 g/dL (32.0-36.0); Mean Corpuscular Hemoglobin 30.3 pg (27.0-31.0); Mean Corpuscular Volume 91.5 fL (78.0-98.0); Mean Platelet Volume 11.3 fL (7.4-10.4); Platelet Count 306 10x3/uL (130-400); RBC Distribution Width 14.5 % (11.5-14.5); Red Blood Cell (RBC) Count 3.66 mill/uL (4.20-5.40)
[2024-03-31 05:33] LABS: Anion Gap 12 mmol/L (10-20); BUN (Urea Nitrogen) 13 mg/dL (9.8-20.1); Calc. Creatinine Clearance 51 mL/min (70-130); Calcium 8.3 mg/dL (7.8-10.44); Carbon Dioxide 21 mmol/L (23-31); Chloride 111 mmol/L (98-107); Estimated GFR 95; Glucose 131 mg/dL (80-115); Potassium 3.8 mmol/L (3.5-5.1); Sodium 140 mmol/L (136-145)
[2024-03-31 13:34] VITALS: BMI 16.0
[2024-03-31] MEDS: Calcium Carbonate 600 MG TAB PO SCH (22:31)
[2024-03-31] MEDS: methylPREDNISolone Sod Succ 40 MG VIAL IVP SCH (22:32)
[2024-04-01] MEDS: Azithromycin 250 MG TAB PO SCH (10:22)
[2024-04-01] MEDS: Azithromycin 200 MG/5 ML Oral Suspension PO SCH (10:24)
[2024-04-02 04:37] LABS: #Basophils Less than 0.03 10x3/uL (0.0-0.2); #Eosinophils Less than 0.03 10x3/uL (0.0-0.7); %Basophils 0.2 % (0.0-1.0); %Eosinophils 0.1 % (0.0-10.0); %Lymphocytes 26.4 % (21.0-51.0); %Monocytes 11.1 % (0.0-10.0); %Neutrophils 61.5 % (42.0-75.0); Hematocrit 33.4 % (36.0-47.0); Mean Corpuscular HGB CONC 32.9 g/dL (32.0-36.0); Mean Corpuscular Hemoglobin 29.6 pg (27.0-31.0); Mean Platelet Volume 10.4 fL (7.4-10.4); Platelet Count 367 10x3/uL (130-400); RBC Distribution Width 14.3 % (11.5-14.5); Red Blood Cell (RBC) Count 3.71 mill/uL (4.20-5.40)
[2024-04-02 04:56] LABS: Anion Gap 10 mmol/L (10-20); BUN (Urea Nitrogen) 19 mg/dL (9.8-20.1); Calc. Creatinine Clearance 49 mL/min (70-130); Calcium 9.4 mg/dL (7.8-10.44); Carbon Dioxide 29 mmol/L (23-31); Chloride 104 mmol/L (98-107); Estimated GFR 95; Glucose 98 mg/dL (80-115); Potassium 3.7 mmol/L (3.5-5.1); Sodium 139 mmol/L (136-145)
[2024-04-02] MEDS: methylPREDNISolone Sod Succ 40 MG VIAL IVP SCH (09:15)
[2024-04-02 13:28] VITALS: BP 158/93; TEMP 97.4
== END 2024-04-02 15:43 | disposition home or self-care (01) | DRG 871 ==
LOC: ERS 23:44 → 2SE 03-30 04:13 → OBSVTOIN 03-30 08:46
PROVIDERS: ADMIT Hospitalist; ATTEND Internal Medicine
DX: A41.9 Sepsis, unspecified organism (principal); E43 Unspecified severe protein-calorie malnutrition; J96.21 Acute and chronic respiratory failure with hypoxia; J18.9 Pneumonia, unspecified organism; J44.0 Chronic obstructive pulmonary disease with (acute) lower respiratory infection; R64 Cachexia; J44.1 Chronic obstructive pulmonary disease with (acute) exacerbation; Z68.1 Body mass index [BMI] 19.9 or less, adult; Z86.718 Personal history of other venous thrombosis and embolism; Z88.5 Allergy status to narcotic agent; Z88.0 Allergy status to penicillin; Z91.040 Latex allergy status; Z87.891 Personal history of nicotine dependence
CPT/HCPCS: 36415; 71045; 71275; 80048; 80053; 82805; 83605; 83735; 83880; 84484; 85025; 85379; 87040; 87428; 93005; 94640; 96374; 96375; G0378; J0456; J0696; J2250; J2919; J3490; J7030; J7050; J7611; J7620; J7626; Q9967

== ENCOUNTER 2024-06-02 13:55 | Outpatient (CLI) | payer OTHER | END 2024-06-02 13:56 | disposition home or self-care (01) | LOC: RAD 13:55 | PROVIDERS: ATTEND Internal Medicine Critical Care Medicine | DX: R06.00 Dyspnea, unspecified (principal); J98.4 Other disorders of lung | CPT/HCPCS: 71046 ==

== ENCOUNTER 2024-06-16 08:53 | Emergency (ER) | payer OTHER ==
[2024-06-16 09:38] LABS: #Basophils 0.06 10x3/uL (0.0-0.2); %Basophils 0.4 % (0.0-1.0); %Eosinophils 4.1 % (0.0-10.0); %Lymphocytes 22.8 % (21.0-51.0); %Monocytes 5.9 % (0.0-10.0); %Neutrophils 66.2 % (42.0-75.0); Hematocrit 44.3 % (36.0-47.0); Hemoglobin 14.5 g/dL (12.0-16.0); Mean Corpuscular HGB CONC 32.7 g/dL (32.0-36.0); Mean Corpuscular Hemoglobin 29.8 pg (27.0-31.0); Mean Corpuscular Volume 91.2 fL (78.0-98.0); Platelet Count 406 10x3/uL (130-400); RBC Distribution Width 13.6 % (11.5-14.5); Red Blood Cell (RBC) Count 4.86 mill/uL (4.20-5.40)
[2024-06-16] MEDS ORDERED: Ketorolac Tromethamine 30 MG (1 mL) VIAL ONE ×2 (09:38→09:39)
[2024-06-16] MEDS ORDERED: Ondansetron PF 4 MG/2 ML Vial ONE (09:38)
[2024-06-16] MEDS ORDERED: diphenhydrAMINE 50 MG/ML VIAL ONE (09:38)
[2024-06-16] MEDS ORDERED: Metoclopramide HCl 10 MG (2 mL) VIAL ONE (09:38)
[2024-06-16] MEDS ORDERED: Magnesium 2 GM/50 ML BAG (IN WATER) ONE (09:39)
[2024-06-16 10:02] LABS: ALT (SGPT) 16 U/L (Less than 34); AST (SGOT) 31 U/L (11-34); Alkaline Phosphatase 48 U/L (40-110); Anion Gap 16 mmol/L (10-20); BUN (Urea Nitrogen) 12 mg/dL (9.8-20.1); Bilirubin, Total 0.5 mg/dL (0.3-1.2); Calc. Creatinine Clearance 0 mL/min (70-130); Calcium 9.2 mg/dL (7.8-10.44); Carbon Dioxide 28 mmol/L (23-31); Chloride 100 mmol/L (98-107); Estimated GFR 74; Globulin 2.8 g/dL (2.4-3.5); Glucose 123 mg/dL (80-115); Potassium 3.6 mmol/L (3.5-5.1); Protein, Total 6.8 g/dL (5.8-8.1); Sodium 140 mmol/L (136-145)
[2024-06-16 10:19] LABS: Troponin I Less than 0.010 ng/mL (< 0.028)
== END 2024-06-16 11:30 | disposition home or self-care (01) ==
LOC: ERS 08:53
DX: G43.909 Migraine, unspecified, not intractable, without status migrainosus (principal); J44.89 Other specified chronic obstructive pulmonary disease; I10 Essential (primary) hypertension; Z87.891 Personal history of nicotine dependence; Z79.899 Other long term (current) drug therapy; Z79.51 Long term (current) use of inhaled steroids
CPT/HCPCS: 70450; 71045; 72125; 80053; 83880; 84484; 85025; 87428; 93005; 94760; 96374; 96375; 99285; J1200; J1885; J2405; J2765; J3475